=== PATIENT | male | born 1960 | race Caucasian/White ===

== ENCOUNTER 2017-03-25 06:53 | Emergency (ER) | payer OTHER ==
[~2017-03-25] VITALS: Ht 180.3 cm; Wt 81.6 kg
[~2017-03-25 06:53] MED LIST: MEDROL 4MG. DOSE4 MG PO
--- NOTE | 2017-03-25 07:47 | Emergency Room Report ---
History of Present Illness Time Seen by MD Simons Presenting Problem in Triage Pt arrived:Walked Presenting Problem:SLIPPED DOWN TWO STEPS AND TWISTED LEG, PAIN IN RIGHT KNEE AND THIGH AREA, Onset of symptoms date/time:03/25/1703/03/430 or onset unknown for: Treatment Prior to Arrival: ASSEMBLER FINAL Provided by: Sepsis Risk Assessment: Temp: 97.8 B/P: 120/77 MAP: 99 Pulse: 61 Resp: 18 Recent fever? N Clinical Suspician of Infection? N Mental Status: 1 - Regular (Normal Baseline) Sepsis Risk:Low Sepsis Risk Have you (or family members/close friends) recently traveled outside the [place]? N If Yes, where/when: Have you had exposure to infectious disease within the past month? N TB? Other? Specify: Source patient, RN notes reviewed, old records Exam Limitations no limitations Comment trip type injury with pain to rt knee /thigh area Cardiac Chest Pain Chest pain indicative of cardiac No Timing/Duration this morning Severity moderate ALLERGIES Uncoded Allergies: INGREDIENT: NO KNOWN - NO KNOWN DRUG ALLERGY (06/20/10) Home Medications Active Scripts Methylprednisolone (Medrol Dose Ede) 4 MG PO DAILY 5 Days Prov: 06/17/07 History Medical History General CAD? No Angina: No OK: Yes Hypertension? No Hyperlipidemia? Yes CHF? No DVT? No PE? No COPD? No Asthma? No Anemia? No GERD? No Gastric ulcers? No GI Bleed? No Hernia? No Thyroid Problems? No Hypothyroidism? No CVA? No Seizures? No Diabetes? Yes Insulin Dependent: No Insulin Pump: No Home FSBS? Yes Renal Insuffiency? No End Stage Renal Disease? No UTI? No Stones? No BPH? No GB Disease: No Nephritic Syndrome? No Asplenia? No Hepatitis? No Sickle Cell Disease? No Arthritis? No Migraines? No Cataracts? No Glaucoma? No MRSA? No HIV? No TB? No Anxiety? No Depression? No Cancer? No More? No Immunization Hx DT/Tetanus 1999 Flu THIS YR Pneumonia NEVER Surgical Hx Previous Surgery?Y ORAL SURGERY BX LEFT LEG Social History Smoking Hx Smoker: Former Smoker Tobacco: No Alcohol Alcohol: No Drugs none Review of Systems All Other Systems Reviewed and Negative Constitutional denies fever Eyes denies drainage ENT denies: ear discharge, epistaxis, throat pain. Respiratory denies cough, denies shortness of breath, denies wheezing Cardiovascular denies chest pain, denies palpitations, denies syncope Gastrointestinal denies abdominal pain, denies diarrhea, denies vomiting Genitourinary denies: dysuria, frequency, hesitancy, hematuria. Musculoskeletal see HPI, denies back pain, joint pain, joint swelling, denies neck pain Skin denies rash Psychiatric/Neurological denies headache, denies seizure Physical Exam Vital Signs Vital Signs Date Time Temp Pulse Resp B/P Pulse O2 O2 Flow FiO2 Ox Delivery Rate 03/25 728 61 18 120/77 98 03/25 657 97.8 63 18 144/77 99 - WBC >12,000 or <4,000 or 10% bands? 2 or more SIRS Criteria Met? B/P:120/77 MAP:99 Creatinine >2.0? UA output<0.5ml/kg/hr for 2 hrs? Platelet count >100,000? Lactate >2.0mmol/1? INR >1.2 or PTT > than 60 sec? Evidence of Organ Dysfunction? Provider documented clinical suspician of infection? N Sepsis Criteria Count: 0 Sepsis Risk: Low Sepsis Risk General Appearance no apparent distress Eye Exam - bilateral eye PERRL, bilateral eye EOMI Ear, Nose, Throat normal ENT inspection Neck non-tender Respiratory Status No: respiratory distress. 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 No Results/Orders Current Medication Orders Sig/Dimitrios Start time Last Medication Dose Route Stop Time Status Admin Acetaminophen 0 .STK-MED ONE 03/25 723 DC PO Acetaminophen 650 MG ONCE ONE 03/25 715 DC 03/25 PO 03/25 Orders Procedure Date/time Status PELVIS AP ONLY 03/25 706 Active KNEE-3 VIEWS-RT 03/25 704 Active FEMUR-RT-2 VIEWS 03/25 704 Active XRAY/CT/US XRAY/CT/US XRAY femur, knee, pelvis XR interpretation by reviewed by me Xray Results no fracture seen Departure Departure Time of Disposition 07 Disposition DC Home or Self Care(routine) Clinical Impression Primary Impression: Rupture quadriceps tendon Qualifiers: Encounter type: initial encounter Laterality: right Qualified Code: S76.111A - Strain of right quadriceps muscle, fascia and tendon, initial encounter Condition STABLE Referrals CLARA MARKS, ANDRE OSBORNE Patient Instructions DI for Quadriceps Strain Additional Instructions ice and see ortho for follow up Discharge Counseling Counseled pt/family regarding diagnosis, test results, follow up needs ED Critical Care Critical Care No at 0716
[2017-03-25 07:53] VITALS: BP 134/80
--- NOTE | 2017-03-25 08:31 | RADIOLOGY REPORT PS360 ---
KNEE-3 VIEWS-RT HISTORY: Pain following injury, pain and swelling FALL ORDERING PHYSICIAN: Junior Stevenson MD PATIENT AGE: 57 years COMPARISON: None FINDINGS: No fracture or dislocation. No lytic or blastic change. Normal mineralization. No significant arthritic changes evident. There is increased soft tissue density in the suprapatellar region consistent with a knee joint effusion. Soft tissue swelling is also present at the patellar and infrapatellar region. IMPRESSION: 1. No acute fracture. 2. Knee joint effusion. 3. Soft tissue swelling
--- NOTE | 2017-03-25 08:32 | RADIOLOGY REPORT PS360 ---
FEMUR-RT-2 VIEWS HISTORY: Pain following injury FALL ORDERING PHYSICIAN: Junior Stevenson MD PATIENT AGE: 57 years COMPARISON: None FINDINGS: No acute fracture or dislocation. No radio opaque foreign body. A well-circumscribed density is present along the anterior and proximal thigh and may be due to a phlebolith. This measures 8 mm. Vascular calcification is present. IMPRESSION: No acute finding.
--- NOTE | 2017-03-25 08:33 | RADIOLOGY REPORT PS360 ---
PELVIS AP ONLY HISTORY: Pain following injury FALL ORDERING PHYSICIAN: Junior Stevenson MD PATIENT AGE: 57 years COMPARISON: None FINDINGS: No fracture or dislocation is evident. No significant degenerative change. No lytic or blastic change. The SI joints have an unremarkable appearance. Unremarkable soft tissues. IMPRESSION: Negative pelvis.
== END 2017-03-25 07:55 | disposition home or self-care (01) ==
LOC: ER 06:53
PROC: 2W3LX1Z Immobilization of Right Lower Extremity using Splint (ICD-10-PCS; principal; 2017-03-25)
DX: S76.111A Strain of right quadriceps muscle, fascia and tendon, initial encounter (principal); X50.1XXA Overexertion from prolonged static or awkward postures, initial encounter; Y92.019 Unspecified place in single-family (private) house as the place of occurrence of the external cause

== ENCOUNTER → 2017-04-03 | Outpatient (CLI) | payer OTHER ==
--- NOTE | 2017-04-03 18:28 | RADIOLOGY REPORT PS360 ---
MRI-LOW EXT ANY JOINT W/O-RT MRI right knee. HISTORY: INJURY OF RT KNEE, INITIAL ENCOUNTERtwisted knee 2 weeks ago pain anterior above patella Patient Age: 57 years: Male Ordering Physician: ANDRE ELIZABETH MD TECHNIQUE: Multiplanar multisequence imaging performed on 1.5 Nehal MRI. COMPARISON :Plain films right knee 03/25/2017 FINDINGS Large joint effusion most evident at suprapatellar bursa. Suspect there is partial tear with some retraction at the anterior aspect quadriceps tendon. Is prominent fluid collection seen about the tip of this retracted portion of tendon/muscle anteriorly along with diffuse edema throughout the soft tissues throughout the anterior lower thigh. Suspect this tear most likely involving rectus femoris muscle.. Posterior to this, vastus intermedius, vastus lateralis, vastus intermedius which forms the deep portion of the quadriceps tendon remains taught & overall intact on these images,- however there is suggestion scant fluid between these layers deep portion of quadriceps tendon evident on these images noted.... Although doubt more superior images most show significant additional pathology if you feel these would be of benefit, then they can be performed . Prominent joint effusion most notable at suprapatellar bursa. Leos's cyst is seen extending inferior to the knee overlying the medial margin medial head gastrocnemius. Patellofemoral joint.. Suggestion Minor chondral scuffing and signal changes at the midportion and towards medial facet patella. The patella position remains fairly normal on the sagittal images. There is slight undulation at the patellar tendon .ACL & PCL ligaments intact . Medial and lateral meniscus intact. Cartilage at medial and lateral compartment intact. Medial collateral ligament lateral collateral ligament intact. IMPRESSION: 1. Partial torn Quadriceps tendon.. This involves anterior aspect of quadriceps tendon Most likely this tear involves rectus femoris tendon myotendinous junction with evident retraction. Focal fluid collection surrounding torn distal end of this tendon.;. Prominent edema throughout the soft tissues of the lower thigh and knee also seen.. 2. Prominent joint effusion with Leos's cyst extending inferior to the knee 3. Minor chondral signal irregularities at the central & medial facet of patella
== END ==
LOC: RAD 11:24
DX: S89.91XA Unspecified injury of right lower leg, initial encounter (principal)